=== PATIENT | female | born 1975 | race Caucasian/White ===

== ENCOUNTER 2016-07-24 10:00 | Emergency (ER) | payer MEDICAID ==
[2016-07-24 10:43] VITALS: BP 127/66
[2016-07-24] MEDS ORDERED: methylPREDNISolone SOD SUCC* 125 MG 2 ML VIAL IM ONE (10:59)
--- NOTE | 2016-07-24 11:07 | UC ---
Allergic Reaction HPI - HPI Summary HPI Summary: patient is having a itchy rash reaction to the costa at work, did take benadryl last night and this morning. rash on trunk neck and arms. denies any respiratory issues. - History of Current Complaint Chief Complaint: UCRash Stated Complaint: ALLERGIC REACTION Time Seen by Provider: 07/24/16 10:54 Hx Obtained From: Patient Hx Last Menstrual Period: 2004 ?: No Onset/Duration: Sudden Onset, Lasting Days Severity Initially: Moderate Severity Currently: Moderate Character: Swelling, Pruritus, Hives Aggrevating Factor(s): Heat Alleviating Factor(s): OTC Meds Associated Signs And Symptoms: Positive: Rash - Allergies/Home Medications Allergies/Adverse Reactions: Allergies Allergy/AdvReac Type Severity Reaction Status Date / Time No Known Allergies Allergy Verified 11/12/15 10:00 Home Medications: Home Medications Nortriptyline CAP* [Pamelor CAP*] 25 mg PO BEDTIME 07/24/16 [History Confirmed 07/24/16] Zonisamide 50 mg PO BEDTIME 07/24/16 [History Confirmed 07/24/16] metFORMIN* [Glucophage 500 MG TAB *] 500 mg PO BEDTIME 07/24/16 [History Confirmed 07/24/16] PMH/Surg Hx/FS Hx/Imm Hx Previously Healthy: Yes Endocrine History Of: Denies: Diabetes, Thyroid Disease Cardiovascular History Of: Denies: Cardiac Disorders, Hypertension, Pacemaker/ICD Respiratory History Of: Denies: COPD, Asthma GI/ History Of: Denies: Ulcer - Surgical History Surgical History: None Surgery Procedure, Year, and Place: LT achilles tendon - cerebral palsy - Family History Known Family History: Positive: None Negative: Cardiac Disease, Hypertension - Social History Alcohol Use: None Substance Use Type: None Smoking Status (MU): Never Smoked Tobacco - Immunization History Most Recent Tetanus Shot: <5 YEARS ( OF 09/23/15) Review of Systems Constitutional: Negative Skin: Rash Eyes: Negative ENT: Negative Respiratory: Negative Cardiovascular: Negative Gastrointestinal: Negative Genitourinary: Negative Motor: Negative Neurovascular: Negative Musculoskeletal: Negative Neurological: Negative Psychological: Negative All Other Systems Reviewed And Are Negative: Yes Physical Exam Triage Information Reviewed: Yes Appearance: Well-Appearing, Well-Nourished, Pain Distress Vital Signs: Initial Vital Signs Temp 98.8 F 07/24/16 10:35 Pulse 66 07/24/16 10:35 Resp 18 07/24/16 10:35 BP 127/66 07/24/16 10:35 Pulse Ox 100 07/24/16 10:35 Vital Signs Reviewed: Yes Eye Exam: Normal Eyes: Positive: Conjunctiva Clear ENT Exam: Normal ENT: Positive: Hearing grossly normal, Pharynx normal, TMs normal Dental Exam: Normal Neck exam: Normal Neck: Positive: Supple, Nontender, No Lymphadenopathy Respiratory Exam: Normal Respiratory: Positive: Chest non-tender, Lungs clear, Normal breath sounds Cardiovascular Exam: Normal Cardiovascular: Positive: RRR, No Murmur, Pulses Normal Abdominal Exam: Normal Abdomen Description: Positive: Nontender, No Organomegaly, Soft Bowel Sounds: Positive: Present Musculoskeletal Exam: Normal Musculoskeletal: Positive: Strength Intact, ROM Intact, No Edema Neurological Exam: Normal Neurological: Positive: Alert, Muscle Tone Normal Psychological Exam: Normal Skin: Positive: rashes - hives on trunk, arms, legs and face Allergic Reaction Course/Dx - Course Course Of Treatment: hx obtained, exam performed, meds reveiwed, solumedrol given, prednisone prescribed. - Differential Dx/Diagnosis Differential Diagnosis/HQI/PQRI: Anaphylaxis, Local Allergic Reaction, Urticaria Provider Diagnoses: allergic reaction. hives Discharge - Discharge Plan Condition: Stable Disposition: HOME Prescriptions: predniSONE TAB* [Deltasone TAB*] 40 mg PO DAILY #14 tab Patient Education Materials: Urticaria (ED) Forms: *Work Release Additional Instructions: 1. start the prednisone tomorrow, you recieved a shot of steroids today 2. continue with benadryl and increase your fluids 3. cool showeres to relieve itching 4. get some rest, follow up with any increase in respiratory symptoms.
== END 2016-07-24 11:22 | disposition home or self-care (01) ==
LOC: UCEAST 10:00
DX: T78.49XA Other allergy, initial encounter (principal); L50.0 Allergic urticaria; X58.XXXA Exposure to other specified factors, initial encounter
CPT/HCPCS: 99212; G0463; J2930

== ENCOUNTER 2016-09-23 12:53 | Emergency (ER) | payer OTHER ==
--- NOTE | 2016-09-23 13:29 | UC ---
UC General HPI - HPI Summary HPI Summary: complaint of falling forward up the stairs fell forward and hit her right shoulder and head on the stairs then fell onto the sidewalk was able to walk without any difficulty afterwards denies LOC at the time currently has right sided neck pain, headache in the back of her head right side slight ringing in her ear feels nauseated but no vomiting denies dizziness,denies any seizure activity hasn't taken any medication for pain feels like she is fatigued - History of Current Complaint Chief Complaint: UCTrauma Stated Complaint: FALL-NECK,HEAD,RT SHOULDER PAIN Time Seen by Provider: 09/23/16 13:17 Hx Obtained From: Patient - Allergy/Home Medications Allergies/Adverse Reactions: Allergies Allergy/AdvReac Type Severity Reaction Status Date / Time No Known Allergies Allergy Verified 09/23/16 13:14 Home Medications: Home Medications Cholecalciferol [Vitamin D] 5,000 units PO WEEKLY 09/23/16 [History Confirmed ] PMH/Surg Hx/FS Hx/Imm Hx Previously Healthy: Yes Neurological History: Seizures - Surgical History Surgical History: None Surgery Procedure, Year, and Place: LT achilles tendon - cerebral palsy - Family History Known Family History: Positive: None Negative: Cardiac Disease, Hypertension - Social History Occupation: Employed Full-time Lives: With Family Alcohol Use: Occasionally Substance Use Type: None Smoking Status (MU): Never Smoked Tobacco - Immunization History Most Recent Tetanus Shot: <5 YEARS ( OF 09/23/15) Review of Systems Constitutional: Negative Skin: Negative Eyes: Negative ENT: Negative Respiratory: Negative Cardiovascular: Negative Gastrointestinal: Negative Genitourinary: Negative Motor: Negative Neurovascular: Negative Musculoskeletal: Other: - right shoulder pain, neck pain, Neurological: Headache Psychological: Negative All Other Systems Reviewed And Are Negative: Yes Physical Exam Triage Information Reviewed: Yes Appearance: No Pain Distress, Well-Nourished Vital Signs: Initial Vital Signs Temp 99.3 F 09/23/16 13:04 Pulse 78 09/23/16 13:04 Resp 16 09/23/16 13:04 BP 145/123 09/23/16 13:04 Pulse Ox 97 09/23/16 13:04 Vital Signs Reviewed: Yes Eyes: Positive: Conjunctiva Clear, Other: - PERRL, EOMI ENT: Positive: Pharynx normal, TMs normal, Other: - slight tenderness in right occipital area of head -no hematoma. Negative: Nasal congestion, Nasal drainage Neck: Positive: Other: - no midline c-spine tenderness, tenderness throughout trapezius musculature, able to move neck to 45degrees without difficulty Respiratory: Positive: Lungs clear, Normal breath sounds, No respiratory distress, No accessory muscle use Cardiovascular: Positive: RRR, No Murmur, Pulses Normal Abdomen Description: Positive: Nontender, Soft Bowel Sounds: Positive: Present Musculoskeletal: Positive: Other: - RUE- ecchymosis and tenderness over AC joint and clavicle, able to move arm in all directions but painful with motion Neurological: Positive: Alert, Other: - negative Romberg Psychological Exam: Normal Skin Exam: Normal Course/Dx - Course Course Of Treatment: exam completed. according to up to date- head injury -no indicators to warrant for ctscan. c-spine- cleared no cspine tenderness. x- rays show no acute abnormailities. will treat for musculoskeletal pain- head injury precautions - Differential Dx - Multi-Symptom Provider Diagnoses: head injury, neck and shoulder pain Discharge - Discharge Plan Condition: Stable Disposition: HOME Patient Education Materials: Head Injury (ED), Musculoskeletal Pain (ED) Referrals: Mary Pope NP [Primary Care Provider] - Additional Instructions: Increase fluids and rest Take acetaminophen or ibuprofen for fever or pain Please review your discharge instructions. If your symptoms do not improve please call your primary care provider or return to urgent care.
[2016-09-23] MEDS ORDERED: Ketorolac INJ* 60 MG/2 ML VIAL IM ONE (13:42)
--- NOTE | 2016-09-23 14:31 | RAD ---
HISTORY: Right shoulder trauma, pain COMPARISONS: March 21, 2012 VIEWS: 4, Frontal internal rotation, external rotation, outlet, and axillary views of the right shoulder FINDINGS: BONE DENSITY: Normal. BONES: There is no displaced fracture. JOINTS: There is no arthropathy. ALIGNMENT: There is no dislocation. SOFT TISSUES: There is soft tissue calcific lesion along the greater tuberosity. OTHER FINDINGS: None. IMPRESSION: SOFT TISSUE CALCIFICATIONS SUGGESTIVE OF A CALCIFIC TENDINOPATHY. NO ACUTE OSSEOUS INJURY. IF SYMPTOMS PERSIST, RECOMMEND REPEAT IMAGING.
--- NOTE | 2016-09-23 14:32 | RAD ---
HISTORY: Fall, right-sided pain COMPARISONS: CT dated June 18, 2014 VIEWS: 4, Frontal, swimmer's, lateral, and open-mouth odontoid views of the cervical spine. FINDINGS: The cervical spine is visualized from the skull base through C7-T1. ALIGNMENT: There is straightening of the normal cervical lordosis. VERTEBRAL BODIES: The odontoid process is intact. The atlantoaxial intervals are symmetric. JOINTS: There is no subluxation or dislocation. The facet joints are unremarkable. INTERVERTEBRAL DISCS: The intervertebral disc heights are normal. SOFT TISSUE: The prevertebral soft tissues are normal. OTHER: The skull base is normal. The lung apices are clear. IMPRESSION: STRAIGHTENING OF THE CERVICAL LORDOSIS. NO ACUTE OSSEOUS INJURY TO THE CERVICAL SPINE
[2016-09-23] MEDS ORDERED: Ibuprofen TAB* 400 MG PO ONE (14:44)
[2016-09-23 14:57] VITALS: BP 133/70
== END 2016-09-23 14:56 | disposition home or self-care (01) ==
LOC: UCEAST 12:53
DX: S09.90XA Unspecified injury of head, initial encounter (principal); M25.511 Pain in right shoulder; M54.2 Cervicalgia; W10.9XXA Fall (on) (from) unspecified stairs and steps, initial encounter; Y93.9 Activity, unspecified; Y92.9 Unspecified place or not applicable; Y99.9 Unspecified external cause status
CPT/HCPCS: 72040; 99213; A9270-GY; G0463

== ENCOUNTER 2017-11-04 15:14 | Emergency (ER) | payer OTHER ==
[2017-11-04 15:28] VITALS: BP 180/91
[2017-11-04] MEDS ORDERED: Ondansetron ODT TAB* 4 MG PO ONE ×2 (16:02→17:38)
[2017-11-04] MEDS ORDERED: HYDROcodone/ACETAMIN 5-325 MG* 1 TAB PO ONE ×2 (16:03→17:33)
[2017-11-04] MEDS ORDERED: NS 0.9% 1000 ML* 1,000 ML IV ONE (16:26)
--- NOTE | 2017-11-04 16:33 | UC ---
Back Pain HPI - HPI Summary HPI Summary: Patient has had 2 days of increased right back pain, feels like it is under her ribs and around the right side of her abdomen, today she cannot get comfortable , has been nasueated and pain becomes very sharp at times. No CP or SOB. - History of Current Complaint Chief Complaint: UCBackPain Stated Complaint: BACK PAIN Time Seen by Provider: 11/04/17 15:57 Hx Obtained From: Patient Hx Last Menstrual Period: 3 months ?: No Onset/Duration: Sudden Onset, Lasting Days Timing: Constant - dull pain, Intermittent - sharp Severity Initially: Mild Severity Currently: Severe Pain Intensity: 5 Back Pain: Is Discrete @ Character: Sharp, Dull, Throbbing, Spasmodic Aggravating Factor(s): Nothing Alleviating Factor(s): Nothing Associated Signs And Symptoms: Positive: Flank Pain - Allergies/Home Medications Allergies/Adverse Reactions: Allergies Allergy/AdvReac Type Severity Reaction Status Date / Time No Known Allergies Allergy Verified 09/23/16 13:14 Home Medications: Home Medications NK [No Home Medications Reported] 11/04/17 [History Confirmed 11/04/17] PMH/Surg Hx/FS Hx/Imm Hx Previously Healthy: Yes - Surgical History Surgical History: None Surgery Procedure, Year, and Place: LT achilles tendon - cerebral palsy - Family History Known Family History: Positive: None Negative: Cardiac Disease, Hypertension - Social History Alcohol Use: Weekly Substance Use Type: None Smoking Status (MU): Former Smoker Length of Time of Smoking/Using Tobacco: 10 years When Did the Patient Quit Smoking/Using Tobacco: 2014 - Immunization History Most Recent Tetanus Shot: <5 YEARS ( OF 09/23/15) Review of Systems Constitutional: Negative Skin: Negative Eyes: Negative ENT: Negative Respiratory: Negative Cardiovascular: Negative Gastrointestinal: Nausea Genitourinary: Negative Motor: Negative Neurovascular: Negative Musculoskeletal: Myalgia Neurological: Negative Psychological: Negative Is Patient Immunocompromised?: No All Other Systems Reviewed And Are Negative: Yes Physical Exam Triage Information Reviewed: Yes Appearance: Well-Nourished, Ill-Appearing, Pain Distress Vital Signs: Initial Vital Signs Temp 98.0 F 11/04/17 15:23 Pulse 88 11/04/17 15:23 Resp 20 11/04/17 15:23 BP 180/91 11/04/17 15:23 Pulse Ox 98 11/04/17 15:23 Vital Signs Reviewed: Yes Eye Exam: Normal ENT Exam: Normal ENT: Positive: Pharyngeal erythema, TMs normal Dental Exam: Normal Neck exam: Normal Neck: Positive: Supple, Nontender, No Lymphadenopathy Respiratory Exam: Normal Respiratory: Positive: Chest non-tender, Lungs clear, Normal breath sounds Cardiovascular Exam: Normal Cardiovascular: Positive: RRR, No Murmur, Pulses Normal Abdomen Description: Positive: Nontender, No Organomegaly, Soft, CVA Tenderness (R) - positive, CVA Tenderness (L) - neg, Peritoneal Signs - negative, Other: - no masses Bowel Sounds: Positive: Present Musculoskeletal Exam: Normal Musculoskeletal: Positive: Strength Intact, ROM Intact, No Edema Neurological Exam: Normal Neurological: Positive: Alert Psychological Exam: Normal Skin Exam: Normal Re-Evaluation - Re-Evaluation First Eval Change: Improved - toradol affective for pain, iv infusing without difficulty Back Pain Course/Dx - Course Course Of Treatment: hx obtained, exam performed ,meds reviewed, UA positive for blood, patients clinical presentation consistent with possible kidney stone , CT not available today, discussed care options with patient, 1. go to ER for further workup. 2. Iv hydration, pain medication and and zofran, if improving, send home with instructions to follow up tomorrow with PCP or to go to ER if symtpoms worsen. Patient agrees with second choice, Dr haywood consulted. toradol given IV - Differential Dx/Diagnosis Differential Diagnosis/HQI/PQRI: Renal Colic, Sprain, Other - Kidney stone Gallstones Provider Diagnoses: Right Flank pain, Hematuria, Nausea Discharge - Sign-Out/Discharge Documenting (check all that apply): Patient Departure - Discharge Plan Condition: Stable Disposition: HOME Patient Education Materials: Flank Pain (ED), How to Strain Your Urine (ED) Referrals: Mary Pope NP [Primary Care Provider] - Additional Instructions: 1. you have recieved 1 liter of Normal Saline zofran for nausea and Toradol at 5pm on 11/04/17 do not take any Advil or Aleve or other NSAID until 1 am this morning. 2. I am dispensing [place] for pain management throught the night. 3. Strain your urine for possible stones 4. Follow up in the morning with urology, or PCP if you cannot get into the urologist. 5. If the pain becomes more than you can bear, you stop urinating, you develop a fever go to ER immediately. - Billing Disposition and Condition Condition: STABLE Disposition: Home
[2017-11-04] MEDS ORDERED: Ketorolac INJ* 30 MG/ML 1 ML VIAL IV PUSH ONE (16:54)
== END 2017-11-04 18:06 | disposition home or self-care (01) ==
LOC: UCEAST 15:14
DX: R10.9 Unspecified abdominal pain (principal); M54.9 Dorsalgia, unspecified; R31.9 Hematuria, unspecified; R11.0 Nausea; Z87.891 Personal history of nicotine dependence
CPT/HCPCS: 81003; 87086; 96360; 96374; 99213; A9270-GY; G0463; J1885

== ENCOUNTER 2018-01-21 08:37 | Emergency (ER) | payer MEDICAID, OTHER ==
[2018-01-21 08:45] VITALS: BP 135/84
--- NOTE | 2018-01-21 09:25 | UC ---
Throat Pain/Nasal Arturo HPI - HPI Summary HPI Summary: 42-year-old woman comes in with a chief complaint of sore throat and fevers for 3 days. She's been having a hard time swallowing and feels dehydrated. She did pass out yesterday coming out of the shower when she had a fever of 103. She woke up on the floor with a bump on the right side of her head. That bump is tender to palpation. No neurologic deficit she's not on any blood thinners. She had no chest pain prior to passing out. Ibuprofen helps some with the pain in the fevers. She does have a generalized headache that she feels is due to the infection. - History of Current Complaint Chief Complaint: UCRespiratory Stated Complaint: THROAT COMPLAINT Time Seen by Provider: 01/21/18 09:10 Hx Last Menstrual Period: 3 months Pain Intensity: 4 - Allergies/Home Medications Allergies/Adverse Reactions: Allergies Allergy/AdvReac Type Severity Reaction Status Date / Time No Known Allergies Allergy Verified 01/21/18 08:45 Home Medications: Home Medications Ibuprofen 800 mg PO 01/21/18 [History] diphenhydrAMINE HCl [Benadryl Allergy] 25 mg PO 01/21/18 [History] PMH/Surg Hx/FS Hx/Imm Hx Previously Healthy: Yes - Surgical History Surgical History: Yes Surgery Procedure, Year, and Place: LT achilles tendon - cerebral palsy - Family History Known Family History: Positive: Diabetes Negative: Cardiac Disease, Hypertension - Social History Alcohol Use: Occasionally Substance Use Type: None Smoking Status (MU): Former Smoker Length of Time of Smoking/Using Tobacco: 10 years When Did the Patient Quit Smoking/Using Tobacco: 2014 - Immunization History Most Recent Tetanus Shot: <5 YEARS ( OF 09/23/15) Review of Systems Constitutional: Fever, Chills Skin: Negative Eyes: Negative ENT: Sore Throat, Ear Ache, Nasal Discharge, Sinus Congestion Respiratory: Negative Cardiovascular: Negative Gastrointestinal: Negative Motor: Negative Neurovascular: Negative Musculoskeletal: Negative Neurological: Negative Psychological: Negative Is Patient Immunocompromised?: No All Other Systems Reviewed And Are Negative: Yes Physical Exam Triage Information Reviewed: Yes Appearance: No Pain Distress, Well-Nourished, Ill-Appearing - MILD Vital Signs: Initial Vital Signs Temp 97.7 F 01/21/18 08:42 Pulse 84 10/29/18 08:42 Resp 18 01/21/18 08:42 BP 135/84 01/21/18 08:42 Pulse Ox 97 01/21/18 08:42 Vital Signs Reviewed: Yes Eye Exam: Normal Eyes: Positive: Conjunctiva Clear ENT: Positive: Pharyngeal erythema, Nasal congestion, Nasal drainage, TMs normal , Other - On the right parietal region of the scalp there is some mild swelling that is mildly tender to palpation. Neck exam: Normal Neck: Positive: Supple, Nontender Respiratory Exam: Normal Respiratory: Positive: Lungs clear, Normal breath sounds, No respiratory distress Cardiovascular: Positive: RRR Musculoskeletal Exam: Normal Musculoskeletal: Positive: Strength Intact, ROM Intact Neurological Exam: Normal Neurological: Positive: Alert, Muscle Tone Normal Psychological Exam: Normal Psychological: Positive: Age Appropriate Behavior Skin Exam: Normal Throat Pain/Nasal Course/Dx - Course Course Of Treatment: By history the syncope appears to have been due to hypovolemia and fever due to the strep pharyngitis. At this time no evidence of any cardiac cause. Patient did strike her head but she describes the pain in that area as mild and she's not any blood thinners. Did discuss head CT imaging however at this time there is no clinical evidence of a concern of a brain bleed or skull fracture. We discussed all this in the plan is if the headache gets worse is any other concerns she will get reevaluated right away. - Differential Dx/Diagnosis Provider Diagnoses: STREP THROAT. SYNCOPE Discharge - Sign-Out/Discharge Documenting (check all that apply): Patient Departure All imaging exams completed and their final reports reviewed: No Studies - Discharge Plan Condition: Stable Disposition: HOME Prescriptions: Amoxicillin PO (*) [Amoxicillin 875 MG (*)] 875 mg PO BID #20 tab Patient Education Materials: Strep Throat (ED), Syncope (ED) Referrals: Mary Pope NP [Primary Care Provider] - Additional Instructions: FOLLOW UP WITH YOUR DOCTOR IF NOT COMPLETELY IMPROVED. GET RECHECKED FOR ANY WORSENING OF YOUR CONDITION OR QUESTIONS OR CONCERNS. - Billing Disposition and Condition Condition: STABLE Disposition: Home
== END 2018-01-21 09:36 | disposition home or self-care (01) ==
LOC: UCEAST 08:37
DX: J02.0 Streptococcal pharyngitis (principal); R55 Syncope and collapse
CPT/HCPCS: 87651; 99212; G0463

== ENCOUNTER 2018-08-16 10:44 | Emergency (ER) | payer OTHER ==
[2018-08-16 10:51] VITALS: BP 136/76
--- NOTE | 2018-08-16 11:49 | UC ---
Complaint Female HPI - HPI Summary HPI Summary: 43-year-old female who feels that she has urinary tract infection. She's had some dysuria, frequency, one episode of urinary incontinence and last night she had fever and started with some back pain today. She's had no vomiting however she is mildly nauseous. She was on a ten-day course of amoxicillin for root canal treatment which she completed and then she had a yeast infection about one week ago which took Monistat for and that resolved. She denies any abnormal vaginal discharge now. - History Of Current Complaint Chief Complaint: UCGU Stated Complaint: FEVER, FREQUENT URGENT URINATION Time Seen by Provider: 08/16/18 11:49 Hx Obtained From: Patient Hx Last Menstrual Period: 12 years ago ?: No Onset/Duration: Gradual Onset Timing: Intermittent Severity Initially: Mild Severity Currently: Moderate Pain Intensity: 8 Character: Burning Aggravating Factor(s): Urination Alleviating Factor(s): Nothing Associated Signs And Symptoms: Positive: Fever, Back Pain, Nausea. Negative: Vaginal Bleeding/Discharge, Vaginal Discharge - Allergies/Home Medications Allergies/Adverse Reactions: Allergies Allergy/AdvReac Type Severity Reaction Status Date / Time No Known Allergies Allergy Verified 08/16/18 10:52 Home Medications: Home Medications NK [No Home Medications Reported] 08/16/18 [History Confirmed 08/16/18] PMH/Surg Hx/FS Hx/Imm Hx Previously Healthy: Yes GI/ History: Other - Possible PCOS - Surgical History Surgical History: Yes Surgery Procedure, Year, and Place: LT achilles tendon - cerebral palsy - Family History Known Family History: Positive: Diabetes Negative: Cardiac Disease, Hypertension - Social History Alcohol Use: Occasionally Substance Use Type: None Smoking Status (MU): Former Smoker Length of Time of Smoking/Using Tobacco: 10 years When Did the Patient Quit Smoking/Using Tobacco: 2014 - Immunization History Most Recent Tetanus Shot: <5 YEARS ( OF 09/23/15) Review of Systems All Other Systems Reviewed And Are Negative: Yes Constitutional: Positive: Fever Gastrointestinal: Positive: Nausea Genitourinary: Positive: Dysuria, Frequency, Urgency. Negative: Vaginal/Penile Burning, Vaginal/Penile Itching, Vaginal/Penile Discharge, Vaginal/Penile Pain, Vaginal/Penile Tenderness Is Patient Immunocompromised?: No Physical Exam Triage Information Reviewed: Yes Appearance: Well-Appearing, No Pain Distress, Well-Nourished Vital Signs: Initial Vital Signs Temp 98 F 08/16/18 10:47 Pulse 74 08/16/18 10:47 Resp 16 08/16/18 10:47 BP 136/76 08/16/18 10:47 Pulse Ox 98 08/16/18 10:47 Vital Signs Reviewed: Yes Eyes: Positive: Conjunctiva Clear ENT: Positive: Hearing grossly normal, Pharynx normal, TMs normal, Uvula midline Neck: Positive: Supple, Nontender, No Lymphadenopathy Respiratory: Positive: Lungs clear, Normal breath sounds, No respiratory distress, No accessory muscle use Cardiovascular: Positive: RRR, No Murmur, Pulses Normal, Brisk Capillary Refill Abdomen Description: Positive: Nontender, No Organomegaly, Soft Bowel Sounds: Positive: Present Musculoskeletal Exam: Normal Neurological Exam: Normal Psychological Exam: Normal Skin Exam: Normal Complaint Female Dx - Course Course Of Treatment: Urinalysis was completely normal. The patient did not have a fever here. I advised her to follow up with her primary care provider early next week if she continues to have symptoms however if she has worsening symptoms over the weekend with fever, chills, vomiting, back pain she is to go to the emergency room for further treatment. - Differential Dx/Diagnosis Provider Diagnosis: Dysuria Discharge - Sign-Out/Discharge Documenting (check all that apply): Patient Departure All imaging exams completed and their final reports reviewed: No Studies - Discharge Plan Condition: Fair Disposition: HOME Patient Education Materials: Dysuria (ED) Referrals: Mary Pope NP [Primary Care Provider] - Additional Instructions: Increase fluids. We will call you if the culture result comes back positive. In the meantime if you develop worsening symptoms, fever, chills, back pain, vomiting then you are to go to the emergency room for further treatment. - Billing Disposition and Condition Condition: FAIR Disposition: Home
--- NOTE | 2018-08-18 15:16 | UC ---
- Progress Note Progress Note: 08/18/2018 Urine culture: positive for E.Coli final report shows resistance to Bactrim PO, Ciprofloxacin PO, Insensitivity to keflex PO, Augmentin PO Pt was not Rx any medication. Please call back patient and inform her of results. Advised Macrobid PO was sent pharmacy for further treatment . Thank you Gaurav Maurice PA-C Course/Dx - Diagnoses Provider Diagnoses: Dysuria Discharge - Sign-Out/Discharge Documenting (check all that apply): Post-Discharge Follow Up All imaging exams completed and their final reports reviewed: No Studies - Discharge Plan Condition: Fair Disposition: HOME Prescriptions: Nitrofurantoin Monohyd/M-Cryst [Macrobid 100 mg Capsule] 100 mg PO BID #14 cap Patient Education Materials: Dysuria (ED) Referrals: Mary Pope NP [Primary Care Provider] - Additional Instructions: Increase fluids. We will call you if the culture result comes back positive. In the meantime if you develop worsening symptoms, fever, chills, back pain, vomiting then you are to go to the emergency room for further treatment. - Billing Disposition and Condition Condition: FAIR Disposition: Home - Attestation Statements Provider Attestation: I was available for consult. This patient was seen by the [facility]. The patient was not presented to, seen by, or examined by me. -Marybel
== END 2018-08-16 12:36 | disposition home or self-care (01) ==
LOC: UCEAST 10:44
DX: R30.0 Dysuria (principal); R11.0 Nausea; R35.0 Frequency of micturition; R32 Unspecified urinary incontinence; R50.9 Fever, unspecified; M54.9 Dorsalgia, unspecified; Z87.891 Personal history of nicotine dependence
CPT/HCPCS: 81003; 84702; 87077; 87086; 87186; 99211; G0463

== ENCOUNTER 2018-12-31 20:34 | Emergency (ER) | payer OTHER ==
--- OUTSIDE RECORDS SUMMARY | 2018-12-31 20:49 | XMS REPORT | Continuity of Care Document ---
:1975 External Reference #:[id number] Author Name Nyasia Benoit MD (transmitted by agent of provider Tracy Randolph) Address [address], [address] [place] [address] Care Team Providers Name Role Phone Alessandra Cummings MD - Internal Care Team Information Operations Intern [phone] Medicine Problems Active Problems Provider Date Depressive disorder Aidan Mayo M.D. Onset: 08/14/2014 Cerebral palsy Aidan Mayo M.D. Onset: 08/14/2014 Daily headache Cinthia Anderson M.D. Onset: 10/23/2014 Polycystic ovaries Mary Varn, N.P. Onset: 04/17/2017 Social History Type Date Description Comments Sex Unknown ETOH Use Denies alcohol use Recreational Drug Use Denies Drug Use Tobacco Use Start: Unknown End: Patient is a former Smoked for 4-5 Unknown smoker years 3-5 cigs a day Quit 10 years ago Smoking Status Reviewed: 12/28/18 Patient is a former Smoked for 4-5 smoker years 3-5 cigs a day Quit 10 years ago Exercise Type/Frequency Exercises regularly Allergies, Adverse Reactions, Alerts Active Allergies Reaction Severity Comments Date Latex Contact dermatitis Severe 07/17/2014 Medications Active Medications SIG Qnty Indications Ordering Date Provider Ventolin HFA 1 to 2 inhalations 18units R05 Mary Varn, 10/10/2018 every 4 hours as N.P. 108(90Base) mcg/Act needed Aerosol Fluoxetine HCL 1 by mouth every 90caps F32.9 Mary Varn, 07/08/2018 40mg day N.P. Capsules Bupropion 1 by mouth every 90tabs Mary Varn, 07/08/2018 Hydrochloride ER (XL) day N.P. 150mg Tablets ER 24HR Multivitamin Adult 1 by mouth every Unknown day Tablets History Medications Doxycycline Hyclate 1 by mouth twice a 20tabs Mary Pope, 07/12/2018 - day x 10 days N.P. 07/22/2018 100mg Tablets Ventolin HFA 1 to 2 inhalations 18units R05 Mary Pope, 07/08/2018 - every 4 hours as N.P. 07/22/2018 108(90Base) mcg/Act needed Aerosol Immunizations Description No Information Available Vital Signs Date Vital Result Comment 12/28/2018 7:19am Height 63 inches 5'3" Weight 245.00 lb Heart Rate 70 /min BP Systolic Sitting 130 mmHg BP Diastolic Sitting 80 mmHg O2 % BldC Oximetry 98 % BMI (Body Mass Index) 43.4 kg/m2 Neck Circumference in inches 17 07/08/2018 10:45am Height 63 inches 5'3" Weight 249.38 lb Heart Rate 75 /min BP Systolic 124 mmHg BP Diastolic 81 mmHg Body Temperature 97.4 F O2 % BldC Oximetry 96 % BMI (Body Mass Index) 44.2 kg/m2 Results Test Date Facility Test Result H/L Range Note Urine Culture And 08/16/2018 [facility] Urine SEE RESULT 1 , [address] [place] [address] [phone] Laboratory test 08/16/2018 [facility] Poc Negative Negative [address] , [place] [address] Urine [phone] Poc Urinalysis 08/16/2018 [facility] Poc Glucose, Negative Negative [address] Urine [place], [place] [id number] [phone] Poc Bilirubin, Urine Negative Negative Poc Ketone, Urine Negative Negative Poc Specific [place], Urine >= 1.030 Normal 1.010-1.030 Poc Blood, Urine Trace-lysed Abnormal Negative Poc pH, Urine 5.5 Normal 5-9 Poc Protein, Urine Negative Negative Poc Urobilinogen, Urine 0.2 Negative Poc Nitrite, Urine Negative Negative Poc Leukocytes, Urine Negative Negative Poc Color, Urine Yellow Poc Clarity, Urine Slightly Cloudy 4 1 [id number] 2 SEE RESULT BELOW Name: ELIF LOERA : [address]: Charmaine Coronel MD Acct: [id number] Unit: [id number] AGE: 43 Location: [facility] Re08/16/18 SEX: F Status: DEP ER SPEC: [id number] ALCIDES: 08/16/18-1227 [facility] DR: Albina Moe NP REQ: [id number] RECD: 08/16/18153 STATUS: COMP OTHR DR: Charmaine Pope TRANSPORTATION DIRECTOR _ SOURCE: URINE SPDESC: ORDERED: Urine Culture COMMENTS: [id number] Procedure Result Reported Site Urine Culture Final 05/26/19- 0740 ML Organism 1 ESCHERICHIA COLI [place] Count 25-50,000 (Moderate) CFU/ML Organism 2 NORMAL SONIA [place] Count 1-10,000 (Few) CFU/ML 1. ESCHERICHIA COLI M.I.C. RX --------- ------ Ampicillin >=32 R Cefazolin 16 I Cefepime <=1 S Ceftriaxone <=1 S Ciprofloxacin >=4 R Gentamicin >=16 R Levofloxacin >=8 R Meropenem <=0.25 S Nitrofurantoin <=16 S Tetracycline >=16 R Pipercillin/Tazobactam <=4 S Trimethoprim/Sulfamethoxazole >=320 R Amoxicillin/Clavulanic Acid 16 I Aztreonam <=1 S Contact the Microbiology Department for any additional antibiotic reporting. * ML - Main Lab . END OF REPORT DEPARTMENT OF PATHOLOGY, [address] [place] [address] Ken Meza M.D. Director [facility] # [id number] 3 Extension Service Specialist In Charge: [id number] Test Disclaimer: Positive bacteria, red blood cells, white blood cells, early , low specific gravity, and other factors may cause false positive or negative results. It is recommended to retest unexpected results within 24 to 72 hours with a serum test when applicable. If is still suspected, please repeat test after 48 to 72 hours. 4 Extension Service Specialist In Charge: [id number] Procedures Description No Information Available Medical Devices Description No Information Available Encounters Type Date Location Provider Dx Diagnosis Office Visit 07/08/2018 [facility] Mary Pope, F32.9 Major depressive 10:40a Medicine - [facility] N.P. disorder, single episode, unspecified R05 Cough Assessments Date Code Description Provider 12/28/2018 G47.9 Sleep disorder, unspecified Nyasia Benoit MD 12/28/2018 R53.83 Other fatigue Nyasia Benoit MD 07/08/2018 F32.9 Major depressive disorder, single episode, Mary Pope, N.P. unspecified 07/08/2018 R05 Cough Mary Pope, N.P. Plan of Treatment Future Appointment(s):01/29/2019 10:30 am - Emma Mendez DNP, RN, SEISMOGRAPH OPERATOR-BC at [facility]01/03/2019 10:00 am - Mary Pope, N.P. at [facility] Medicine - [facility]12/28/2018 - Nyasia Benoit MDG47.9 Sleep disorder, unspecifiedNew Orders:Home Sleep Testing, Ordered: 12/28/18Follow up: 2 kmyawF90.83 Other fatigue Functional Status Description No Information Available Mental Status Description No Information Available Referrals Description No Information Available
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
--- NOTE | 2018-12-31 22:09 | ED ---
Progress - Progress Note Progress Note: Pt is a signout from Dr. Argueta at 2200 pending imaging results. - Results/Orders Results/Orders: Brain CT 1. Stable encephalomalacia in the right frontoparietal region possibly due to chronic infarct. 2. No acute intracranial pathology. C-spine CT No cervical spine fracture or other acute traumatic CT pathology. Maxillofacial CT 1. There is left facial contusion. 2. No acute maxillofacial fracture. ED physician has reviewed these reports. Course/Dx - Course Course Of Treatment: Patient was signed out from Dr. Barrios pending imaging results. Patient had negative CT head, CT cervical spine, CT maxillofacial. Patient was offered pain medication and nausea medication but declined. Patient became outraged at discharge and left without her discharge paperwork. Patient had her discharge paperwork work mailed to her. - Diagnoses Provider Diagnoses: Head injury, Concussion, Vomiting Discharge ED - Sign-Out/Discharge Documenting (check all that apply): Patient Departure, Receiving Sign-Out Receiving patient FROM: Dee Dee Argueta - Discharge Plan Condition: Stable Disposition: HOME Prescriptions: Ondansetron TAB* [Zofran 4 MG Tab*] 4 mg PO Q8HR PRN #12 tab PRN Reason: Vomiting Patient Education Materials: Concussion (ED), Head Injury (ED) Referrals: Mary Pope NP [Primary Care Provider] - Additional Instructions: Please follow up with your primary care provider within the next 1-3 days. Take Tylenol as needed for your pain. Come back to the emergency department with any intractable vomiting, one-sided weakness, or changes in your speech or vision. - Billing Disposition and Condition Condition: STABLE Disposition: Home - Attestation Statements Document Initiated by Ervin: Yes Documenting Scribe: Lesly Irving Provider For Whom Ervin is Documenting (Include Credential): Damir Rg MD. Scribe Attestation: Lesly Amador scribed for Damir Rg MD. on 01/01/19 at 0303. Scribe Documentation Reviewed: Yes Provider Attestation: The documentation as recorded by the antonioibeLesly accurately reflects the service I personally performed and the decisions made by , Damir Rg MD. Status of Scribe Document: Viewed
[2018-12-31 23:29] VITALS: BP 0/0
[2018-12-31] MEDS: Ondansetron ODT TAB* 4 MG SL ONE (23:32)
[2018-12-31] MEDS: Acetaminophen TAB* 325 MG PO ONE (23:33)
[2018-12-31] MEDS: Ibuprofen TAB* 600 MG PO ONE (23:33)
== END 2018-12-31 23:27 | disposition home or self-care (01) ==
LOC: ED 20:34
DX: S06.0X9A Concussion with loss of consciousness of unspecified duration, initial encounter (principal); R11.10 Vomiting, unspecified; W22.8XXA Striking against or struck by other objects, initial encounter; Y92.9 Unspecified place or not applicable; F41.9 Anxiety disorder, unspecified; Z87.891 Personal history of nicotine dependence; Z79.899 Other long term (current) drug therapy
CPT/HCPCS: 70450; 70486; 72125; 99283

== ENCOUNTER 2019-03-05 07:27 | Inpatient (IN) | payer OTHER ==
[~2019-03-05 07:27] MED LIST: Buffered Lidocaine 1% SYRIN* 1 ML/SYRINGE INTRADERM ONE; Dexamethasone IV* 4 MG/ML 1 ML (4 MG) IV SLOW PU ONE; Famotidine IV* 10 MG/ML 2 ML (20 mg) IV ONE; Lactated Ringers 1000 ML Bag* 1,000 ML IV SCH
--- OUTSIDE RECORDS SUMMARY | 2019-03-05 07:30 | XMS REPORT | Continuity of Care Document ---
:1975 External Reference #:[id number] Author Name Mary Pope, N.P. (transmitted by agent of provider Amber Olson) Address [address], [place] [address] Care Team Providers Name Role Phone Alessandra Cummings MD - Internal Care Team Information Sales Representative Uniforms [phone] Medicine Problems Active Problems Provider Date Depressive disorder Aidan Mayo M.D. Onset: 08/14/2014 Cerebral palsy Aidan Mayo M.D. Onset: 08/14/2014 Daily headache Cinthia Anderson M.D. Onset: 10/23/2014 Polycystic ovaries Mary Pope, N.P. Onset: 04/17/2017 Social History Type Date Description Comments Sex Unknown ETOH Use Denies alcohol use Recreational Drug Use Denies Drug Use Tobacco Use Start: Unknown End: Patient is a former Smoked for 4-5 Unknown smoker years 3-5 cigs a day Smoking Status Reviewed: 03/04/19 Patient is a former Smoked for 4-5 smoker years 3-5 cigs a day Exercise Type/Frequency Exercises regularly 3 - 5 days weekly Cardio and weight lifting, Swimming Allergies, Adverse Reactions, Alerts Active Allergies Reaction [...] 1 by mouth every Unknown day Tablets Immunizations Description No Information Available Vital Signs Date Vital Result Comment 03/04/2019 9:12am Height 63 inches 5'3" Weight 235.25 lb Heart Rate 68 /min BP Systolic Sitting 116 mmHg BP Diastolic Sitting 80 mmHg Body Temperature 97.4 F O2 % BldC Oximetry 97 % BMI (Body Mass Index) 41.7 kg/m2 01/03/2019 10:17am Height 63 inches 5'3" Weight 247.25 lb Heart Rate 80 /min BP Systolic Sitting 121 mmHg BP Diastolic Sitting 77 mmHg Body Temperature 98.8 F O2 % BldC Oximetry 95 % BMI (Body Mass Index) 43.8 kg/m2 Results Test Acquired Date Facility Test Result H/L Range Note CBC Auto 03/03/2019 [facility] White Blood 11.7 10^3/uL High 3.5-10.[address] [place] [place] [address] [phone] Red Blood Count 4.84 10^6/uL Normal 3.70-4.87 Hemoglobin 14.3 g/dL Normal 12.0-16.0 Hematocrit 42 % Normal 35-47 Mean Corpuscular Volume 88 fL Normal 80-97 Mean Corpuscular Hemoglobin 30 pg Normal 27-31 Mean Corpuscular HGB Conc 34 g/dL Normal 31-36 Red Cell Distribution Width 14 % Normal 10-15 Platelet Count 327 10^3/uL Normal 150-450 Mean Platelet Volume 8.7 fL Normal 7.4-10.4 Abs Neutrophils 7.3 10^3/uL Normal 1.5-7.7 Abs Lymphocytes 3.6 10^3/uL Normal 1.0-4.8 Abs Monocytes 0.6 10^3/uL Normal 0-0.8 Abs Eosinophils 0.1 10^3/uL Normal 0-0.6 Abs Basophils 0.1 10^3/uL Normal 0-0.2 Abs Nucleated RBC 0.0 10^3/uL Granulocyte % 62.1 % Lymphocyte % 30.6 % Monocyte % 5.5 % Eosinophil % 1.2 % Basophil % 0.6 % Nucleated Red Blood Cells % 0.3 Comp Metabolic 03/03/2019 [facility] Sodium 138 mmol/L Normal 135-[address] [place] [address] [phone] Potassium 4.2 mmol/L Normal 3.5-5.0 Chloride 102 mmol/L Normal 101-111 Co2 Carbon Dioxide 27 mmol/L Normal 22-32 Anion Gap 9 mmol/L Normal 2-11 Glucose 92 mg/dL Normal 70-100 Blood Urea Nitrogen 17 mg/dL Normal 6-24 Creatinine 0.66 mg/dL Normal 0.51-0.95 BUN/Creatinine Ratio 25.8 High 8-20 Calcium 10.5 mg/dL High 8.6-10.3 Total Protein 7.6 g/dL Normal 6.4-8.9 Albumin 4.8 g/dL Normal 3.2-5.2 Globulin 2.8 g/dL Normal 2-4 Albumin/Globulin Ratio 1.7 Normal 1-3 Total Bilirubin 0.40 mg/dL Normal 0.2-1.0 Alkaline Phosphatase 43 U/L Normal 34-104 Alt 25 U/L Normal 7-52 Ast 24 U/L Normal 13-39 Egfr Non- 98.7 >60 Egfr 119.4 >60 1 Urinalysis Profile 03/03/2019 [facility] Urine Color [address] [place] [address] [phone] Urine Appearance Turbid Urine Specific [place] 1.031 High 1.010-1.030 Urine pH 5.0 Normal 5-9 Urine Urobilinogen Negative Negative Urine Ketones 2+ Abnormal Negative Urine Protein 1+(30 mg/dL) Abnormal Negative Urine Leukocytes Negative Negative Urine Blood Negative Negative * * Abnormal Negative 2 Urine Nitrite Negative Negative Urine Bilirubin Negative Negative Urine Glucose Negative Negative Urine White Blood Cell Trace(0-5/hpf) Absent Urine Red Blood Cell Trace(0-2/hpf) Absent Urine Bacteria Absent Absent CBC No Diff 02/26/2019 [facility] White Blood 14.4 10^3/uL High 3.5-10.[address] [place] [address] [phone] Red Blood Count 4.76 10^6/uL Normal 3.70-4.87 Hemoglobin 14.0 g/dL Normal 12.0-16.0 Hematocrit 41 % Normal 35-47 Mean Corpuscular Volume 87 fL Normal 80-97 Mean Corpuscular Hemoglobin 30 pg Normal 27-31 Mean Corpuscular HGB Conc 34 g/dL Normal 31-36 Red Cell Distribution Width 13 % Normal 10-15 Platelet Count 320 10^3/uL Normal 150-450 Mean Platelet Volume 8.1 fL Normal 7.4-10.4 Basic Metabolic 02/26/2019 [facility] Sodium 137 mmol/L Normal 135-[address] [place] [address] [phone] Potassium 4.0 mmol/L Normal 3.5-5.0 Chloride 101 mmol/L Normal 101-111 Co2 Carbon Dioxide 27 mmol/L Normal 22-32 Anion Gap 9 mmol/L Normal 2-11 Glucose 78 mg/dL Normal 70-100 Blood Urea Nitrogen 11 mg/dL Normal 6-24 Creatinine 0.64 mg/dL Normal 0.51-0.95 BUN/Creatinine Ratio 17.2 Normal 8-20 Calcium 9.7 mg/dL Normal 8.6-10.3 Egfr Non- 102.3 >60 Egfr 123.7 >60 3 CBC Auto 01/03/2019 [facility] White Blood 11.6 10^3/uL High 3.5-10.[address] [place] [place] [address] [phone] Red Blood Count 4.73 10^6/uL Normal 3.70-4.87 Hemoglobin 14.0 g/dL Normal 12.0-16.0 Hematocrit 42 % Normal 35-47 Mean Corpuscular Volume 88 fL Normal 80-97 Mean Corpuscular Hemoglobin 30 pg Normal 27-31 Mean Corpuscular HGB Conc 34 g/dL Normal 31-36 Red Cell Distribution Width 14 % Normal 10-15 Platelet Count 332 10^3/uL Normal 150-450 Mean Platelet Volume 8.5 fL Normal 7.4-10.4 Abs Neutrophils 7.3 10^3/uL Normal 1.5-7.7 Abs Lymphocytes 3.5 10^3/uL Normal 1.0-4.8 Abs Monocytes 0.6 10^3/uL Normal 0-0.8 Abs Eosinophils 0.2 10^3/uL Normal 0-0.6 Abs Basophils 0.1 10^3/uL Normal 0-0.2 Abs Nucleated RBC 0.0 10^3/uL Granulocyte % 62.7 % Lymphocyte % 30.2 % Monocyte % 5.1 % Eosinophil % 1.3 % Basophil % 0.7 % Nucleated Red Blood Cells % 0.1 Comp Metabolic 01/03/2019 [facility] Sodium 138 mmol/L Normal 135-[address] [place] [address] [phone] Potassium 4.5 mmol/L Normal 3.5-5.0 Chloride 104 mmol/L Normal 101-111 Co2 Carbon Dioxide 27 mmol/L Normal 22-32 Anion Gap 7 mmol/L Normal 2-11 Glucose 97 mg/dL Normal 70-100 Blood Urea Nitrogen 15 mg/dL Normal 6-24 Creatinine 0.60 mg/dL Normal 0.51-0.95 BUN/Creatinine Ratio 25.0 High 8-20 Calcium 9.5 mg/dL Normal 8.6-10.3 Total Protein 7.3 g/dL Normal 6.4-8.9 Albumin 4.6 g/dL Normal 3.2-5.2 Globulin 2.7 g/dL Normal 2-4 Albumin/Globulin Ratio 1.7 Normal 1-3 Total Bilirubin 0.30 mg/dL Normal 0.2-1.0 Alkaline Phosphatase 53 U/L Normal 34-104 Alt 20 U/L Normal 7-52 Ast 17 U/L Normal 13-39 Egfr Non- 110.2 >60 Egfr 133.3 >60 4 Urinalysis Profile 01/03/2019 [facility] Urine Color Yellow [address] [place] [address] [phone] Urine Appearance Clear Urine Specific [place] 1.015 Normal 1.010-1.030 Urine pH 5.0 Normal 5-9 Urine Urobilinogen Negative Negative Urine Ketones Negative Negative Urine Protein Negative Negative Urine Leukocytes Trace Abnormal Negative Urine Blood Negative Negative Urine Nitrite Negative Negative Urine Bilirubin Negative Negative Urine Glucose Negative Negative Urine White Blood Cell Trace(0-5/hpf) Absent Urine Red Blood Cell Trace(0-2/hpf) Absent Urine Bacteria Absent Absent Urine Squamous Epithelial Cell Present Abnormal Absent Urine Culture And 01/03/2019 [facility] Urine Culture SEE RESULT [address] [place] [address] [phone] 1 Because ethnic data is not always readily available, this report includes an eGFR for both -Americans and non- Americans. The National Kidney Disease Education Program (NKDEP) does not endorse the use of the MDRD equation for patients that are not between the ages of 18 and 70, are , have extremes of body size, muscle mass, or nutritional status, or are non- or non-. According to the National Kidney Foundation, irrespective of diagnosis, the stage of the disease is based on the level of kidney function: Stage Description GFR(mL/min/1.73 m(2)) 1 Kidney damage with normal or decreased GFR 90 2 Kidney damage with mild decrease in GFR 60-89 3 Moderate decrease in GFR 30-59 4 Severe decrease in GFR 15-29 5 Kidney failure <15 (or dialysis) 2 *Ascorbic acid is present which may interfere with detection of blood. 3 Because ethnic data is not always readily available, this report includes an eGFR for both -Americans and non- Americans. The National Kidney Disease Education Program (NKDEP) does not endorse the use of the MDRD equation for patients that are not between the ages of 18 and 70, are , have extremes of body size, muscle mass, or nutritional status, or are non- or non-. According to the National Kidney Foundation, irrespective of diagnosis, the stage of the disease is based on the level of kidney function: Stage Description GFR(mL/min/1.73 m(2)) 1 Kidney damage with normal or decreased GFR 90 2 Kidney damage with mild decrease in GFR 60-89 3 Moderate decrease in GFR 30-59 4 Severe decrease in GFR 15-29 5 Kidney failure <15 (or dialysis) 4 Because ethnic data is not always readily available, this report includes an eGFR for both -Americans and non- Americans. The National Kidney Disease Education Program (NKDEP) does not endorse the use of the MDRD equation for patients that are not between the ages of 18 and 70, are , have extremes of body size, muscle mass, or nutritional status, or are non- or non-. According to the National Kidney Foundation, irrespective of diagnosis, the stage of the disease is based on the level of kidney function: Stage Description GFR(mL/min/1.73 m(2)) 1 Kidney damage with normal or decreased GFR 90 2 Kidney damage with mild decrease in GFR 60-89 3 Moderate decrease in GFR 30-59 4 Severe decrease in GFR 15-29 5 Kidney failure <15 (or dialysis) 5 SEE RESULT BELOW Name: ELIF LOERA : [address]: Mary Pope NP Acct: [id number] Unit: [id number] AGE: 43 Location: [facility] Re01/03/19 SEX: F Status: REG REF SPEC: [id number] ALCIDES: 01/03/[address]: Mary Pope NP REQ: [id number] RECD: 01/03/19 STATUS: COMP _ SOURCE: URINE SPDESC: ORDERED: Urine Culture Procedure Result Reported Site Urine Culture Final 01/04/19- 1249 ML No Growth (<1,000 CFU/mL) * - Main Lab . END OF REPORT DEPARTMENT OF PATHOLOGY, [address] [place] [address] Ken Meza M.D. Director [facility] # [id number] Procedures Date Code Description Status 01/09/2019 75944 Sleep Study Unattended,HRT Rate,Oxygen Sat,Resp Completed Effort/Airflow 01/03/2019 27716 EKG Tracing & Interpretation Completed Medical Devices Description No Information Available Encounters Type Date Location Provider Dx Diagnosis Office Visit 01/03/2019 Health Care Assistant Internal Mary Pope, Z01.818 Encounter for other 10:00a Medicine - [facility] N.P. preprocedural examination Z68.41 Body mass index (BMI) 40.0-44.9, adult E66.3 Overweight G80.8 Other cerebral palsy F33.9 Major depressive disorder, recurrent, unspecified G43.019 Migraine w/o aura, intractable, without status migrainosus Office Visit 12/28/2018 8:00a Pulmonology And Nyasia G47.9 Sleep disorder, [facility] unspecified [facility] R53.83 Other fatigue Assessments Date Code Description Provider 03/04/2019 Z68.41 Body mass index (BMI) 40.0-44.9, adult Mary Pope, N.P. 03/04/2019 Z01.818 Encounter for other preprocedural examination Mary Pope N.P. 03/04/2019 G80.8 Other cerebral palsy Mary Pope, N.P. 03/04/2019 J45.20 Mild intermittent asthma, uncomplicated Mary Pope, N.P. 01/09/2019 G47.9 Sleep disorder, unspecified Nyasia Benoit MD 01/03/2019 Z01.818 Encounter for other preprocedural examination Ronda Navarro MD 01/03/2019 Z01.818 Encounter for other preprocedural examination Mary Pope N.P. 01/03/2019 Z68.41 Body mass index (BMI) 40.0-44.9, adult Mary Pope, N.P. 01/03/2019 E66.3 Overweight Mary Pope, N.P. 01/03/2019 G80.8 Other cerebral palsy Mary Pope, N.P. 01/03/2019 F33.9 Major depressive disorder, recurrent, Mary Varn, N.P. unspecified 01/03/2019 G43.019 Migraine without aura, intractable, without Mary Varn , N.P. status migrainosus 12/28/2018 G47.9 Sleep disorder, unspecified Nyasia Benoit MD 12/28/2018 R53.83 Other fatigue Nyasia Benoit MD Plan of Treatment 03/04/2019 - Mary Pope, N.P.Z68.41 Body mass index (BMI) 40.0-44.9, yxikrF29.818 Encounter for other preprocedural examinationComments:You are in good health on examination today and are cleared for your surgery tomorrow.G80.8 Other cerebral jvyhrO58.20 Mild intermittent asthma, uncomplicated Functional Status Description No Information Available Mental Status Description No Information Available Referrals Description No Information Available
[2019-03-05] MEDS ORDERED: ceFAZolin 2 GM PREMIX in ORs 2 GM/50 ML BAG ONE (07:56)
[2019-03-05] MEDS ORDERED: Buffered Lidocaine 1% SYRIN* 1 ML/SYRINGE INTRADERM ONE (07:56)
[2019-03-05] MEDS ORDERED: Dexamethasone IV* 4 MG/ML 1 ML (4 MG) ONE (07:56)
[2019-03-05] MEDS ORDERED: Heparin VIAL(*) 5000 UNITS/ML VIAL (FIVE THOUSAND) ONE (07:56)
[2019-03-05] MEDS ORDERED: Famotidine IV* 10 MG/ML 2 ML (20 mg) ONE (07:56)
[2019-03-05] MEDS ORDERED: Ketorolac INJ* 30 MG/ML 1 ML VIAL ONE (08:48)
[2019-03-05] MEDS ORDERED: EPHEDrine (Pressors)* 50 MG/ML VIAL ONE (08:48)
[2019-03-05] MEDS ORDERED: Ondansetron INJ* 2 MG/ML VIAL ONE ×2 (08:48→11:58)
[2019-03-05] MEDS ORDERED: Midazolam* 1 MG/ML 5 ML VIAL (5 MG) ONE (08:48)
[2019-03-05] MEDS ORDERED: Propofol* 10 MG/ML 20 ML BTL ONE (08:48)
[2019-03-05] MEDS ORDERED: fentaNYL* 50 MCG/ML 5 ML VIAL (250 MCG VIAL) ONE (08:48)
[2019-03-05] MEDS ORDERED: Rocuronium* 10 MG/ML VIAL ONE (08:48)
[2019-03-05] MEDS ORDERED: Bupivacaine 0.25% EPI 200,000* 30 ML SDV ONE (09:06)
[2019-03-05] MEDS ORDERED: ceFAZolin 1 GM ADVAN(*) 1 GM ADDV.VIAL IVPB ONE (09:10)
[2019-03-05] MEDS ORDERED: fentaNYL* 50 MCG/ML 2 ML VIAL (100 MCG VIAL) ONE ×3 (10:06→11:23)
[2019-03-05] MEDS ORDERED: Scopolamine 1.5 mg* PATCH TRANSDERM PRN (10:22)
[2019-03-05] MEDS ORDERED: Ondansetron INJ* 2 MG/ML VIAL IV PRN (10:22)
[2019-03-05] MEDS ORDERED: Naloxone* 0.4 MG/ML 1 ML VIAL IV PRN (10:22)
[2019-03-05] MEDS ORDERED: Sugammadex * 200 MG/2 ML VIAL IV PUSH ONE (10:41)
[2019-03-05] MEDS ORDERED: Acetaminophen ADULT LIQ* 650 MG/20.3 ML UDC PO PRN (11:09)
--- NOTE | 2019-03-05 11:09 | BRIEFOPN ---
Brief Operative/Procedure Note - Operation Details Pre-Op Diagnosis: morbid obesity Post-Op Diagnosis: same Procedures: laparoscopic sleeve gastrectomy Surgeon(s)/Proceduralists: Katrin. Assist: BREEZY Vicente Anesthesia: GET Estimated Blood Loss: < 20 ml; IVF: 900 ml RL Findings: as above Specimen(s)/Culture(s) Description: portion of stomach Complications: none
[2019-03-05] MEDS ORDERED: Albuterol HFA INHALER* 8 gm MDI INH PRN (11:15)
[2019-03-05] MEDS ORDERED: DiMENhydriNATE IV* 50 MG/ML VIAL ONE ×2 (11:23→12:48)
[2019-03-05] MEDS: fentaNYL* 50 MCG/ML 2 ML VIAL (100 MCG VIAL) IV PRN ×2 (11:25→11:45)
[2019-03-05] MEDS: DiMENhydriNATE IV* 50 MG/ML VIAL IV PUSH PRN ×2 (11:25→12:51)
[2019-03-05] MEDS ORDERED: HYDROmorphone INJ1* 1 MG/ML SYRINGE ONE (11:57)
[2019-03-05] MEDS ORDERED: Scopolamine 1.5 mg* PATCH ONE (11:57)
[2019-03-05] MEDS: HYDROmorphone INJ1* 1 MG/ML SYRINGE IV PRN ×2 (12:01→12:25)
[2019-03-05] MEDS: Ketorolac INJ* 30 MG/ML 1 ML VIAL IV SCH ×2 (13:56→21:07)
[2019-03-05] MEDS: HYDROmorphone INJ* 0.5 MG/0.5 ML SYRINGE IV SLOW PU PRN (13:56)
[2019-03-05] MEDS: Lactated Ringers 1000 ML Bag* 1,000 ML IV SCH ×2 (13:56→21:05)
[2019-03-05] MEDS: Ondansetron INJ* 2 MG/ML VIAL IV PRN (16:05)
[2019-03-05] MEDS: HYDROmorphone INJ1* 1 MG/ML SYRINGE IV SLOW PU PRN ×3 (16:25→23:07)
[2019-03-05] MEDS ORDERED: Metoclopramide IV* 5 MG/ML 2 ML VIAL IV ONE (18:55)
[2019-03-05] MEDS: Famotidine IV* 10 MG/ML 2 ML (20 mg) IV SLOW PU SCH (21:07)
[2019-03-05] MEDS: Heparin VIAL(*) 5000 UNITS/ML VIAL (FIVE THOUSAND) SUBCUT SCH (21:38)
--- NOTE | 2019-03-05 22:08 | OP ---
CC: Metabolic and Bariatric Surgery; Primary Care Doctor, Mary Pope NP * DATE OF OPERATION: 03/05/19 - ROOM #347 DATE OF : [birth year] SURGEON: Reuben Wilkes MD STATISTICS MANAGER: BREEZY Patton ANESTHESIOLOGIST: Dr. Bonilla. ANESTHESIA: General anesthesia. PRE-OP DIAGNOSIS: Clinically severe obesity. POST-OP DIAGNOSIS: Clinically severe obesity. OPERATIVE PROCEDURE: Laparoscopic sleeve gastrectomy. ESTIMATED BLOOD LOSS: 20 cc. FLUIDS: 900 cc of crystalloid fluid given. SPECIMEN: Portion of the stomach. DRAINS: None. COMPLICATIONS: None. DESCRIPTION OF PROCEDURE: The patient was identified in the preoperative area. Consent was signed. The patient was marked. She was brought to the operating room and placed on the operating table in supine position. Preoperative antibiotics were given. Sequential devices were placed on bilateral lower extremities. General anesthesia was induced. The patient was checked on the bed to make sure pressure points were addressed and that she could be placed in a steep reverse Trendelenburg when needed. We then prepped her abdomen in standard surgical fashion and then she was draped. A time-out was performed. Folds of the umbilicus were elevated anteriorly and a Veress needle was inserted into the abdominal cavity, which was then allowed to insufflate to a pressure of 15 mmHg. The patient tolerated the insufflation well. [place] between the xiphoid and the umbilicus just left of midline, an optical 12-mm trocar was inserted. Laparoscope was inserted through this and there was no evidence of injury from the trocar insertion or from the Veress needle, which was then removed. Additional trocars were then placed in the following positions: Two 5-mm at the left upper quadrant and one 12-mm at the right upper quadrant. The table was placed in a steep reverse Trendelenburg. Review of the abdomen showed no free fluid. The bowels appeared within normal limits. There were no adhesions. Next, a Angelo retractor was inserted through a subxiphoid incision and the large liver was retracted anteriorly into the right exposing the gastroesophageal fat pad. This fat pad was grasped and retracted towards the right lower quadrant. Blunt and sharp dissection was carried out to expose the left dinesh and then the fat pad was dissected towards the lesser curvature of the stomach. Next, a retrogastric tunnel was made at 5 cm proximal from the pylorus on the great curvature. A LigaSure device was used to take the vascular supply to the greater curvature of the stomach right up to the angle of His that we previously dissected. Posterior attachments were similarly taken until the stomach could be rotated along its axis. Next, a sleeve stomach was created using 60-mm purple KAREN stapling device, starting at the greater curvature, 5 cm from the pylorus and extending this towards the incisura. We placed a 40-Setswana bougie by the anesthesiologist into the distal stomach before firing the stapler. After this, we utilized additional similar staplers with reinforcement strips, hugging the bougie. The bougie was removed. Staple line appeared intact without irregular adriana without corkscrewing. The resected portion of the stomach was placed in an endoscopic retrieval bag. The Angelo retractor was removed and the liver was allowed to fall on to the sleeve stomach, completely obscuring the stomach. Next, the resected portion of the stomach in the endoscopic retrieval bag was brought up to the right upper quadrant port site, which was then closed with an 0 Vicryl stitch using a Weck device. The abdomen was allowed to collapse and trocars were removed under direct vision and all incisions were reapproximated with 5-0 Monocryl subcuticular sutures followed by Steri-Strips and sterile dressing. The patient tolerated the procedure well and was transferred to the PACU in stable condition. [id number]/[facility] #: [id number] JADON
[2019-03-06] MEDS: HYDROmorphone INJ1* 1 MG/ML SYRINGE IV SLOW PU PRN ×3 (02:12→22:34)
[2019-03-06] MEDS: Ondansetron INJ* 2 MG/ML VIAL IV PRN ×3 (02:16→22:35)
[2019-03-06] MEDS: Ketorolac INJ* 30 MG/ML 1 ML VIAL IV SCH ×4 (03:06→22:34)
[2019-03-06] MEDS: Lactated Ringers 1000 ML Bag* 1,000 ML IV SCH (03:11)
[2019-03-06] MEDS: Heparin VIAL(*) 5000 UNITS/ML VIAL (FIVE THOUSAND) SUBCUT SCH ×3 (06:24→22:35)
[2019-03-06] MEDS: Famotidine IV* 10 MG/ML 2 ML (20 mg) IV SLOW PU SCH ×2 (08:35→22:35)
[2019-03-06] MEDS: HYDROmorphone INJ* 0.5 MG/0.5 ML SYRINGE IV SLOW PU PRN ×2 (10:35→18:50)
[2019-03-06] MEDS: D5W 1/2 NS KCl 20 Meq 1000 ML* 1,000 ML IV SCH ×2 (10:35→21:07)
[2019-03-06] MEDS: HYDROcodone/ACET. 7.5/325 LIQ* 15 ML UDC PO PRN (13:16)
--- NOTE | 2019-03-06 17:26 | PN ---
Progress Note - Progress Note Date of Service: 03/06/19 SOAP: Subjective: NAD uncomfortable in bed C/O epigastric and RUQ discomfort. Ambulating well in halls [] Objective: Vital Signs Temp 97.3 F 03/06/19 16:20 Pulse 73 03/06/19 16:20 Resp 18 03/06/19 16:20 BP 132/64 03/06/19 16:20 Pulse Ox 96 03/06/19 16:20 Intake & Output 03/05/19 03/06/19 03/06/19 18:59 06:59 18:59 Intake Total 0 1959 707 Output Total 1300 1100 Balance 0 660 -393 Weight 236 lb 12.8 oz Intake: IV Fluids 1959 707 LR 1959 707 Oral 0 0 0 Output: Urine 1300 1100 Other: Estimated Void Medium # Voids 6 UGI: no leak [] PEX: GEN: NAD Chest:CTA CVS:RRR ABD: soft, epigastric /RUQ and incisional tenderness dressings C/D/I EXT: calves soft non tender Assessment:43 yo female POD 1 S/P Lap Sleeve gastrectomy [] Plan: Start Bariatric clears, OOB ambulate, encouraged deep breathing, SCD's. D /C Planning []
[2019-03-07] MEDS: Ketorolac INJ* 30 MG/ML 1 ML VIAL IV SCH ×2 (03:37→08:18)
[2019-03-07] MEDS: D5W 1/2 NS KCl 20 Meq 1000 ML* 1,000 ML IV SCH (05:24)
[2019-03-07] MEDS: Heparin VIAL(*) 5000 UNITS/ML VIAL (FIVE THOUSAND) SUBCUT SCH (05:25)
[2019-03-07] MEDS: Ondansetron INJ* 2 MG/ML VIAL IV PRN (05:45)
[2019-03-07] MEDS: HYDROmorphone INJ* 0.5 MG/0.5 ML SYRINGE IV SLOW PU PRN (06:22)
[2019-03-07] MEDS: Famotidine IV* 10 MG/ML 2 ML (20 mg) IV SLOW PU SCH (08:18)
[2019-03-07] MEDS: HYDROcodone/ACET. 7.5/325 LIQ* 15 ML UDC PO PRN (10:19)
[2019-03-07 10:27] VITALS: BP 134/88
--- NOTE | 2019-03-07 17:07 | DS ---
CC: Mary Pope NP; [place] [facility] DISCHARGE SUMMARY: DATE OF ADMISSION: DATE OF DISCHARGE: 03/07/19 PRIMARY CARE DOCTOR: Mary Pope NP HOSPITAL COURSE: Ms. Boateng is a 43-year-old female who was worked up as an outpatient with clini daisy severe obesity, presented on same day of surgery and underwent a laparoscopic sleeve gastrectom y. Please see report for full details. In the postoperative period, the patient was transferred to the PACU and onto the short-stay surgical unit. She maintained n.p.o. status until the following day when she underwent an upper GI study, wh ich was reviewed and within normal limits and she was started on a liquid diet. The patient was treated for pain, had relatively minimal p.o. intake for the first postoperative day. By postoperative day 2, the patient continued to have some difficulty with liquids, but ambulating we ll and doing well overall. Plan was for discharge home and follow up at the metabolic and bariatric offices. PHYSICAL EXAMINATION: On the day of discharge, the patient was evaluated. She is afebrile. Vital s igns are stable. She is alert and oriented x3, in no apparent distress. Head, Ears, Eyes, Nose, and Throat: Normocephalic, atraumatic. Sclerae anicteric. Mucous membranes are moist. Lungs: Clear to auscultation bilaterally. Abdomen: Soft, nondistended. Tender at the right upper quadrant. Dres sing is removed. Steri-Strips in place. No redness. Extremities within normal limits. PLAN: Discharged home. Liquid diet. She will be started on omeprazole and resume her bupropion and fluoxetine. DISCHARGE CONDITION: The patient was discharged home in stable condition. [id number]/[facility] #: [id number]
== END 2019-03-07 14:59 | disposition home or self-care (01) | DRG 403 ==
LOC: AA 07:27 → SSU 11:10
PROVIDERS: ADMIT Surgery; ATTEND Surgery
PROC: 0DB64Z3 Excision of Stomach, Percutaneous Endoscopic Approach, Vertical (ICD-10-PCS; principal; 2019-03-05 09:45)
DX: E66.01 Morbid (severe) obesity due to excess calories (principal); Z68.41 Body mass index [BMI] 40.0-44.9, adult; E28.2 Polycystic ovarian syndrome; E55.9 Vitamin D deficiency, unspecified; G80.8 Other cerebral palsy; F32.9 Major depressive disorder, single episode, unspecified; F41.9 Anxiety disorder, unspecified; M19.90 Unspecified osteoarthritis, unspecified site; Z79.1 Long term (current) use of non-steroidal anti-inflammatories (NSAID); Z83.3 Family history of diabetes mellitus; Z91.040 Latex allergy status; Z79.899 Other long term (current) drug therapy; Z87.891 Personal history of nicotine dependence; Z82.3 Family history of stroke; Z83.49 Family history of other endocrine, nutritional and metabolic diseases; Z80.3 Family history of malignant neoplasm of breast; Z80.1 Family history of malignant neoplasm of trachea, bronchus and lung; Z82.49 Family history of ischemic heart disease and other diseases of the circulatory system; Z83.42 Family history of familial hypercholesterolemia; Z81.8 Family history of other mental and behavioral disorders
CPT/HCPCS: 43775; 74246; 81025; 87641; 88307; A9270-GY; J0690; J1100; J1170; J1240; J1644; J1885; J2250; J2405; J2704; J2765; J3010